=== PATIENT | female | born 1995 | race Caucasian/White ===

== ENCOUNTER 2016-10-29 08:28 | Emergency (ER) | payer MEDICAID ==
--- NOTE | ~2016-10-29 | ER ---
PATIENT'S NAME: JACKIE [facility] AGE: 21 Y [address] ROOM: [place], [place] [address] LOCATION: ED ADMIT DATE: 10/29/2016 ER/Outpatient Report DISCHARGE DATE: 10/29/2016 FAMILY PHYSICIAN: PHYSICIAN, EDDIE ATTENDING PHYSICIAN: Imtiaz Romano CHIEF COMPLAINT: Right-sided abdominal, flank, back pain. HISTORY OF PRESENT ILLNESS: The patient states the pain started this morning and woke her up. It is not gotten better with [id number] remedies. The pain does not radiate to her groin. She does have some urinary symptoms and this feels somewhat like a prior urinary tract infection but she is not sure. She states that a few weeks ago she had what she thought may have been a positive test but did have a period in the interim, which was shorter than normal but otherwise has had no other complaints. She denies a history of STI. She denies any unusual vaginal discharge or other unusual bleeding. PAST MEDICAL HISTORY: Documented on the record and reviewed by me. SOCIAL HISTORY: Documented on the record and reviewed by me. MEDICATIONS: Documented on the record and reviewed by me. ALLERGIES: DOCUMENTED ON THE RECORD AND REVIEWED BY ME. REVIEW OF SYSTEMS: All systems were reviewed and negative except as noted in the HPI. PHYSICAL EXAMINATION: VITAL SIGNS: Blood pressure 120/97, pulse is 84, respiratory rate is 18, temperature is 97.2, SpO2 is 95% on room air. Pain 7/10. NEUROLOGIC: The patient is awake and alert. GCS is 15. No focal deficits. No asymmetry. HEENT: Normocephalic, atraumatic. Eyes are PERRL. Oropharynx is clear. NECK: Supple. Trachea is midline. CHEST/HEART: Regular rate and rhythm with no murmurs. LUNGS: Clear to auscultation bilateral with no rhonchi, wheezes, or rales. ABDOMEN: Soft, nontender, and nondistended. No rebound or guarding. BACK: Nontender to palpation throughout. Equivocal right-sided CVA PATIENT'S NAME: JACKIE [facility]ELLEY [facility] AGE: 21 Y [address] ROOM: [place], [place] [id number] LOCATION: ED ADMIT DATE: 10/29/2016 ER/Outpatient Report DISCHARGE DATE: 10/29/2016 FAMILY PHYSICIAN: PHYSICIAN, NO ATTENDING PHYSICIAN: Imtiaz Romano tenderness. No left-sided CVA tenderness. EXTREMITIES: Warm and well perfused. No obvious abnormalities. SKIN: Warm, dry, and intact. IMAGING: CT of the abdomen reveals gallstones and stool burden with no other abnormalities. EKG; sinus rhythm, rate of 71 with first-degree block, otherwise normal intervals and axis. LABORATORY DATA: Procalcitonin is below detectable threshold. Amylase and lipase are within normal limits. CRP 0.33. HCG is below detectable threshold. Free T4 is 1.1. TSH 1.32. CBC without abnormality. INR 0.98. Lactate is 1.4. Urinalysis is 100 leukocytes, positive nitrites, no blood. Micro 20-50 wbc's, negative rbc's, 10-20 epithelial cells, moderate bacteria. CMS without abnormality. IMPRESSION: Urinary tract infection with possible early pyelonephritis. EMERGENCY DEPARTMENT COURSE: The patient was seen and evaluated as above. The patient was given pain and nausea medication with improvement. Based on presentation, CT was obtained. No acute surgical causes. She does have gallstones, which will likely cause her problems in the future, but based on her labs, she has no evidence of hepatobiliary pathology at this time otherwise. She does have some flank pain, which is more consistent with early pyelonephritis. Based on her vital signs and lack of other inflammatory response in the setting of nitrite positive urine, we will treat for UTI. She was given ciprofloxacin and prescription for same. Recommend [id number] medications in the interim. She should follow up with her primary care provider as needed. MD TITO VASQUES/raul /[id number] d: 10/29/162015 t: 11/08/16 1733, OUTPATIENT REPORT
[2016-10-29 09:18] LABS: BASOPHIL % 0.5 %; EOSINOPHIL # 0.1 K/uL (0.0-0.5); EOSINOPHIL % 1.4 %; HEMOGLOBIN 13.9 g/dL (11.0-15.0); IMMATURE GRANULOCYTE % 0.1 %; LYMPHOCYTE # 2.5 K/uL (0.8-4.0); LYMPHOCYTE % 34.8 %; MCH 30.6 pg (27.0-34.0); MCHC 33.9 gm/dL (32.0-36.5); MCV 90.3 fl (83.0-98.0); MONOCYTE # 0.5 K/uL (0.0-1.0); MONOCYTE % 7.1 %; MPV 9.9 fl (9.4-12.4); NEUTROPHIL # (ANC) 4.1 K/uL (1.8-7.8); NEUTROPHIL % 56.1 %; NRBC % 0 /100WBC (0-0.00); PLATELET COUNT 357 K/uL (150-450); RBC 4.54 M/uL (3.50-5.00); RDW-CV 12.4 % (11.9-14.6); WBC 7.3 K/uL (4.0-11.0)
[2016-10-29 09:25] LABS: INR - (THERAPEUTIC) 0.98 (0.92-1.07); PROTIME 10.3 SECONDS (9.8-11.4); PTT 31 SECONDS (25-32)
[2016-10-29 10:24] LABS: ALBUMIN 4.4 gm/dL (3.5-5.0); ALK PHOS 98 IU/L (33-138); ALT 20 IU/L (12-78); ANION GAP 16.8 (10.0-19.0); AST 11 IU/L (10-40); BLOOD UREA NITROGEN 11 mg/dL (6-24); CHLORIDE 108 mMol/L (96-110); CO2 22 mMol/L (22-32); CREATININE 0.8 mg/dL (0.5-1.1); ESTIMATED GFR (MDRD EQUATION) > 60; POTASSIUM 3.8 mMol/L (3.7-5.1); SODIUM 143 mMol/L (135-145); TOTAL BILIRUBIN 0.4 mg/dL (0.0-1.5); TOTAL PROTEIN 7.8 g/dL (6.0-8.4)
[2016-10-29 10:46] LABS: BILIRUBIN URINE NEGATIVE (NEGATIVE); BLOOD URINE NEGATIVE /UL (NEGATIVE); COLOR URINE YELLOW (YELLOW); GLUCOSE URINE NEGATIVE (NEGATIVE); KETONE URINE NEGATIVE (NEGATIVE); LEUKOCYTES URINE 100 /UL (NEGATIVE); NITRITE URINE POSITIVE (NEGATIVE); PROTEIN URINE NEGATIVE (NEGATIVE); TURBIDITY URINE CLEAR (CLEAR); UROBILINOGEN URINE NORMAL (NORMAL)
[2016-10-29 11:02] LABS: RBC URINE NEGATIVE #/HPF (NEGATIVE); WBC URINE 20-50 #/HPF (NEGATIVE)
[2016-10-29 11:03] LABS: BACTERIA URINE MODERATE (NEGATIVE); MUCUS URINE 1+ (NEGATIVE)
== END 2016-10-29 13:15 | disposition disaster alternative care site (69) ==
LOC: GMED 08:28
PROVIDERS: Emergency Medicine
DX: N39.0 Urinary tract infection, site not specified (principal); F17.210 Nicotine dependence, cigarettes, uncomplicated
CPT/HCPCS: J0744; J2405; J3010; Q9967

== ENCOUNTER → 2016-11-05 | Outpatient (CLI) | payer MEDICAID | END | disposition disaster alternative care site (69) | LOC: GAMB 15:36 | DX: S09.90XA Unspecified injury of head, initial encounter (principal); S19.9XXA Unspecified injury of neck, initial encounter; S09.93XA Unspecified injury of face, initial encounter; S49.92XA Unspecified injury of left shoulder and upper arm, initial encounter; M25.512 Pain in left shoulder; M54.2 Cervicalgia; G89.11 Acute pain due to trauma; R51 Headache; V49.9XXA Car occupant (driver) (passenger) injured in unspecified traffic accident, initial encounter | CPT/HCPCS: A0425; A0429 ==